=== PATIENT | male | born 1990 | race American Indian/Alaskan Native ===

== ENCOUNTER 2018-07-11 07:10 | Emergency (ER) | payer BC ==
[2018-07-11 07:45] VITALS: BP 143/70
[2018-07-11] MEDS ORDERED: IBUPROFEN PO ONE (09:06)
--- NOTE | 2018-07-11 09:14 | Emergency Department Report ---
ED Back Pain/Injury HPI - General Chief Complaint: Back Pain/Injury Stated Complaint: BACK PAIN Time Seen by Provider: 07/11/18 08:48 Source: patient Limitations: No Limitations - History of Present Illness Initial Comments: This is a 27-year-old male who presents ED complaining of low back pain and began yesterday after he was moving some furniture's. 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 He denies dysuria, fever, chills, nausea vomiting abdominal pain. MD Complaint: back pain - Related Data Previous Rx's Medication Instructions Recorded Last Taken Type Cyclobenzaprine [Flexeril] 10 mg PO QHS PRN #15 tablet 07/11/18 Unknown Rx Ibuprofen [Motrin 800 MG tab] 800 mg PO TID #20 tablet 07/11/18 Unknown Rx Allergies Allergy/AdvReac Type Severity Reaction Status Date / Time No Known Allergies Allergy Unverified 07/11/18 07:30 ED Review of Systems ROS: Stated complaint: BACK PAIN Other details as noted in HPI Comment: All other systems reviewed and negative ED Past Medical Hx - Past Medical History Previous Medical History?: No - Surgical History Past Surgical History?: No - Social History Smoking Status: Never Smoker Substance Use Type: Alcohol - Medications Home Medications: Home Medications Medication Instructions Recorded Confirmed Last Taken Type Cyclobenzaprine [Flexeril] 10 mg PO QHS PRN #15 tablet 07/11/18 Unknown Rx Ibuprofen [Motrin 800 MG tab] 800 mg PO TID #20 tablet 07/11/18 Unknown Rx ED Physical Exam - General Limitations: No Limitations General appearance: alert, in no apparent distress - Head Head exam: Present: atraumatic, normocephalic - Eye Eye exam: Present: normal appearance - ENT ENT exam: Present: mucous membranes moist - Neck Neck exam: Present: normal inspection - Respiratory Respiratory exam: Present: normal lung sounds bilaterally. Absent: respiratory distress - Cardiovascular Cardiovascular Exam: Present: regular rate, normal rhythm. Absent: systolic m urmur, diastolic murmur, rubs, gallop - GI/Abdominal GI/Abdominal exam: Present: soft, normal bowel sounds - Rectal Rectal exam: Present: deferred - Extremities Exam Extremities exam: Present: normal inspection - Back Exam Back exam: Present: normal inspection, full ROM, tenderness (to palpation of the latissimus dorsi muscles of the back). Absent: CVA tenderness (R), CVA tenderness (L) - Neurological Exam Neurological exam: Present: alert, oriented X3 - Psychiatric Psychiatric exam: Present: normal affect, normal mood - Skin Skin exam: Present: warm, dry, intact, normal color. Absent: rash ED Course Vital Signs 07/11/18 07:41 Temperature 98.3 F Pulse Rate 68 Respiratory 16 Rate Blood Pressure 143/70 O2 Sat by Pulse 98 Oximetry ED Medical Decision Making - Radiology Data Radiology results: report reviewed, image reviewed History: Hit with piece of furniture Findings: On the lateral view, there is suggestion of a very subtle cortical defect along the superior, anterior endplate of T12. A superior endplate fracture is difficult to exclude. There is no significant loss of height. The lumbar vertebra are normal height and alignment. There is minimal levocurvature of the lumbar spine estimated at 5 degrees or less. No evidence for lumbar fracture or significant degenerative changes. Impression: Questionable superior endplate abnormality at T12. Please correlate with the patient consider further imaging with CT. Transcribed By: TTR Dictated By: ABHISHEK JEFFERSON JR, MD Electronically Authenticated By: ABHISHEK JEFFERSON JR, MD Signed Date/Time: 07/11/18 1148 - Medical Decision Making 27-year-old male presents with lower back pain, muscle strain ED course: Patient received Motrin ED. Vital signs are normal patient is in no acute distress Discussed with patient follow-up with primary care physician. Discussed the patient and take medications as prescribed. Patient has no neurological deficit. Patient is alert and oriented 3 and understands all instructions given. Discussed drowsiness effect of Flexeril makes her drowsy and not to operate machinery while taking flexeril Critical care attestation.: If time is entered above; I have spent that time in minutes in the direct care of this critically ill patient, excluding procedure time. ED Disposition Clinical Impression: Strain of muscle, fascia and tendon of lower back, initial encounter Disposition: TO HOME OR SELFCARE Is pt being admited?: No Does the pt Need Aspirin: No Condition: Stable Instructions: Muscle Strain (ED), Low Back Strain (ED), Back Pain (ED) Additional Instructions: Make sure to follow up with the primary care physician as discussed. Take all your medications as you've been prescribed. If you have any worsening symptoms or develop new symptoms please return to ED immediately. Prescriptions: Cyclobenzaprine [Flexeril] 10 mg PO QHS PRN #15 tablet PRN Reason: Muscle Spasm Ibuprofen [Motrin 800 MG tab] 800 mg PO TID #20 tablet Referrals: MICHAEL GOLDMAN JR, MD [Primary Care Provider] - 3-5 Days Forms: Work/School Release Form(ED) Time of Disposition: 09:18
--- NOTE | 2018-07-11 11:52 | XRay Report ---
LUMBOSACRAL SPINE, 3 VIEWS: History: Hit with piece of furniture Findings: On the lateral view, there is suggestion of a very subtle cortical defect along the superior, anterior endplate of T12. A superior endplate fracture is difficult to exclude. There is no significant loss of height. The lumbar vertebra are normal height and alignment. There is minimal levocurvature of the lumbar spine estimated at 5 degrees or less. No evidence for lumbar fracture or significant degenerative changes. Impression: Questionable superior endplate abnormality at T12. Please correlate with the patient consider further imaging with CT.
== END 2018-07-11 09:43 | disposition home or self-care (01) ==
LOC: ED 07:10
DX: S39.012A Strain of muscle, fascia and tendon of lower back, initial encounter (principal); X58.XXXA Exposure to other specified factors, initial encounter; Y93.89 Activity, other specified; Y92.89 Other specified places as the place of occurrence of the external cause; Y99.8 Other external cause status
CPT/HCPCS: 72100; 99283